=== PATIENT | female | born 1970 | race Caucasian/White ===

== ENCOUNTER 2018-09-24 14:51 | Emergency (ER) | payer MEDICAID ==
[~2018-09-24] VITALS: Ht 157.5 cm; Wt 152.4 kg
[2018-09-24 14:58] VITALS: BP 139/91
--- NOTE | 2018-09-24 15:17 | NUR ---
48 Y F BIB SELF C/O L ANTERIOR CHEST PAIN 6/10 DULL CONSTANT. PAIN RADIATING TO BACK SINCE THIS MORNING. DENIES NVD, DENIES SOB. NO CARDIAC HX. AA0X4. CLEAR SPEECH. PT STATES IT FEELS LIKE SHE WAS BUNCHED IN THE CHEST. BED IS DOWN, LOCKED, BED RAIL X 1, ERMD NOTIFIED. HX OF ASTHMA. RX ALBUTEROL
[2018-09-24 16:41] VITALS: BP 125/62
--- NOTE | 2018-09-24 16:41 | NUR ---
Patient discharged with v/s stable BY DR SEVERINO. Written and verbal after care instructions given and explained. Patient alert, oriented and verbalized understanding of instructions. Ambulatory with steady gait. All questions addressed prior to discharge. ID band removed. Patient advised to follow up with PMD. Rx of NAPROSYN given. Patient educated on indication of medication including possible reaction and side effects. Opportunity to ask questions provided and answered.
--- NOTE | 2018-09-24 16:41 | NUR ---
DR SEVERINO AT BEDSIDE
== END 2018-09-24 16:41 | disposition home or self-care (01) ==
LOC: MED 14:51
DX: M94.0 Chondrocostal junction syndrome [Tietze] (principal); J45.909 Unspecified asthma, uncomplicated
CPT/HCPCS: 81002; 81025; 93005; 99283

== ENCOUNTER 2019-01-24 17:53 | Emergency (ER) | payer MEDICAID ==
[~2019-01-24] VITALS: Ht 157.5 cm; Wt 148.8 kg
[2019-01-24 19:00] VITALS: BP 122/98
--- NOTE | 2019-01-24 19:35 | NUR ---
ASSUMED CARE OF PT AT THIS TIME. AAOX4 AND AMBULATORY TO CHAIR E. C/O LEFT FOOT PAIN X 1 WEEK. PT STATES SHE, "STEPPED DOWN WRONG" ON HER LEFT FOOT. PATIENT STATES PAIN OF 6/10; VSS; PATIENT POSITIONED FOR COMFORT; ER MD MADE AWARE OF PT STATUS. WILL CONTINUE TO MONITOR.
[2019-01-24] MEDS ORDERED: KETOROLAC 30 MG/ML VIAL IM ONE (19:40)
--- NOTE | 2019-01-24 20:28 | NUR ---
PT TAKEN TO RAD
--- NOTE | 2019-01-24 20:38 | NUR ---
PT RETURN FROM XRAY
--- NOTE | 2019-01-24 21:35 | NUR ---
KRYSTAL WRAP APPLIED TO PT L ANKLE. +CSM
[2019-01-24 21:36] VITALS: BP 126/89
--- NOTE | 2019-01-24 21:37 | NUR ---
Patient discharged with v/s stable. Written and verbal after care instructions given and explained. Patient alert, oriented and verbalized understanding of instructions. Ambulatory with steady gait. All questions addressed prior to discharge. ID band removed. Patient advised to follow up with PMD. Rx of NAPROXYN given. Patient educated on indication of medication including possible reaction and side effects. Opportunity to ask questions provided and answered.
== END 2019-01-24 21:37 | disposition home or self-care (01) ==
LOC: MED 17:53
DX: S93.602A Unspecified sprain of left foot, initial encounter (principal); M77.32 Calcaneal spur, left foot; J45.909 Unspecified asthma, uncomplicated; X58.XXXA Exposure to other specified factors, initial encounter; Y93.01 Activity, walking, marching and hiking; Y92.89 Other specified places as the place of occurrence of the external cause; Y99.8 Other external cause status
CPT/HCPCS: 73630; 96372; 99283; J1885; Q0092

== ENCOUNTER 2020-09-16 23:50 | Emergency (ER) | payer MEDICAID ==
[~2020-09-16] VITALS: Ht 157.5 cm; Wt 164.7 kg
[2020-09-16 23:58] VITALS: BP 171/90
--- NOTE | 2020-09-16 23:58 | NUR ---
to bed ambulatory
--- NOTE | 2020-09-17 00:11 | NUR ---
50 YR OLD FEMALE PRESENTED TO THE ER WITH CC OF ABD PAIN AND BLOODY STOOL. PT IS AOX4. PT STATES HAVING BLOOD/BRIGHT REDNESS IN STOOL PAST 2 WEEKS. PT STATES ABD PAIN SINCE JULY WHEN TAKING INDOMETHICIN. PT STATES 7/10 NON RADIAITNG SHARP ABD PAIN. PT STATES BURNING/PAIN DURING URINATION. PT STATES NAUSEA. PT DENIES OTHER MEDICAL COMPLAINTS. BED LOCKED IN LOWEST POSITION WITH 1 SIDE RAIL UP. HISTORY- ASTHMA, OA ALLERGIES- SHELLFISH
--- NOTE | 2020-09-17 00:15 | NUR ---
Dr. Heaton examining patient.
[2020-09-17] MEDS ORDERED: DICYCLOMINE HCL LIQUID 20 MG, ALUMINUM HYD/MAG/SIMETHICONE 30 ML, LIDOCAINE VISCOUS 2% ... PO ONE ×3 (00:25)
[2020-09-17] MEDS ORDERED: LIDOCAINE VISCOUS 2% 20 ML UDC ONE (00:28)
[2020-09-17] MEDS ORDERED: ALUMINUM HYD/MAG/SIMETHICONE 30 ML UDC ONE (00:28)
[2020-09-17] MEDS ORDERED: DICYCLOMINE HCL LIQUID 10 MG/5 ML UDC ONE (00:28)
[2020-09-17] MEDS ORDERED: DOCU-299 PO (00:54)
[2020-09-17] MEDS ORDERED: ONDA8TAB87 PO (00:54)
[2020-09-17] MEDS ORDERED: OMEP40EC24 PO (00:54)
[2020-09-17] MEDS ORDERED: CIPR500T4 PO (00:54)
--- NOTE | 2020-09-17 01:00 | NUR ---
PT FOUND AWAKE IN SEMI-KOEHLER'S POSITION IN BED. PT STATES 2/10 ABD PAIN. PT DENIES OTHER MEDICAL COMPLAINTS. BED LOCKED IN LOWEST POSITION WITH 1 SIDE RAIL UP.
[2020-09-17 01:06] VITALS: BP 171/90
--- NOTE | 2020-09-17 01:06 | NUR ---
Patient discharged with v/s stable. Written and verbal after care instructions given and explained. Patient alert, oriented and verbalized understanding of instructions. Ambulatory with steady gait. All questions addressed prior to discharge. ID band removed. Patient advised to follow up with PMD. Rx of CIPROFLOXACIN, DOCUSATE SODIUM, OMEPRAZOLE, ODANSETRON given. Patient educated on indication of medication including possible reaction and side effects. Opportunity to ask questions provided and answered.
== END 2020-09-17 01:06 | disposition home or self-care (01) ==
LOC: MED 23:50
DX: N39.0 Urinary tract infection, site not specified (principal); R11.0 Nausea; J45.909 Unspecified asthma, uncomplicated; Z98.890 Other specified postprocedural states
CPT/HCPCS: 81002; 81025; 99283

== ENCOUNTER 2023-12-20 00:20 | Emergency (ER) | payer MEDICAID, OTHER ==
[~2023-12-20] VITALS: Ht 157.5 cm; Wt 143.3 kg
[~2023-12-20 00:20] MED LIST: CIPR500T4 PO; DOCU-299 PO; OMEP40EC24 PO; ONDA8TAB87 PO
[2023-12-20 00:50] VITALS: BP 89/54; PULSE 68; RESP 19; TEMP 97.9; O2SAT 99
[2023-12-20 01:06] VITALS: O2SAT 97
[2023-12-20] MEDS: NACL 0.9% 500 ML IV ONE (01:40)
[2023-12-20] MEDS: ONDANSETRON 4 MG/2 ML VIAL IVP ONE ×2 (01:41→08:00)
[2023-12-20] MEDS: MORPHINE SULFATE 2 MG/ML SYR IVP STA (01:42)
[2023-12-20 03:28] LABS: BASOPHILS # (AUTO) 0.1 K/uL (0.00-0.22); BASOPHILS % (AUTO) 0.4 % (0.0-2.0); EOSINOPHILS % (AUTO) 0.1 % (0.0-4.0); HEMOGLOBIN 12.8 g/dL (12.0-16.0); LYMPHOCYTES % (AUTO) 5.8 % (20.5-51.1); MEAN CORPUSCULAR HEMOGLOBIN 26 pg (27-31); MEAN CORPUSCULAR HGB CONC 32 g/dL (33-37); MEAN CORPUSCULAR VOLUME 81.2 fL (80-94); NEUTROPHILS # (AUTO) 15.3 K/uL (1.8-7.7); NEUTROPHILS % (AUTO) 87.7 % (42.2-75.2); PLATELET COUNT (AUTO) 167 K/uL (140-450); RED BLOOD CELL COUNT(AUTO) 4.92 MIL/uL (4.20-5.40); RED CELL DISTRIBUTION WIDTH 18.3 % (11.6-13.7); WHITE BLOOD COUNT (AUTO) 17.5 K/uL (4.8-10.8)
[2023-12-20 03:35] LABS: ANION GAP 16.2 (8-16); CALCIUM 8.2 mg/dL (8.5-10.1); CARBON DIOXIDE 22.9 mmol/L (21-32); CREATININE 0.9 mg/dL (0.6-1.3); POTASSIUM 5.1 mmol/L (3.5-5.1)
[2023-12-20 05:26] VITALS: O2SAT 97
[2023-12-20 07:22] VITALS: O2SAT 95
[2023-12-20] MEDS: MORPHINE SULFATE 4 MG/ML SYR IVP ONE (08:02)
[2023-12-20 09:34] VITALS: BP 125/69; PULSE 66; RESP 13; TEMP 98.3; O2SAT 98
== END 2023-12-20 09:31 | disposition home or self-care (01) ==
LOC: MED 00:20
DX: S22.42XA Multiple fractures of ribs, left side, initial encounter for closed fracture (principal); S20.214A Contusion of middle front wall of thorax, initial encounter; S30.1XXA Contusion of abdominal wall, initial encounter; J45.909 Unspecified asthma, uncomplicated; Z79.1 Long term (current) use of non-steroidal anti-inflammatories (NSAID); Z79.2 Long term (current) use of antibiotics; Z79.899 Other long term (current) drug therapy; V49.59XA Passenger injured in collision with other motor vehicles in traffic accident, initial encounter; Y93.89 Activity, other specified; Y92.89 Other specified places as the place of occurrence of the external cause; Y99.8 Other external cause status
CPT/HCPCS: 36415; 70450; 71275; 72125; 73562; 73590; 74174; 80048; 84484; 85025; 90471; 90715; 96361; 96374; 96375; 96376; 99291; J2270; J2405; J7030; Q9967